=== PATIENT | female | born 1995 | race Caucasian/White ===

== ENCOUNTER 2018-09-27 17:22 | Emergency (ER) | payer OTHER ==
[~2018-09-27] VITALS: Ht 177.8 cm; Wt 99.8 kg
== END 2018-09-27 20:35 | disposition home or self-care (01) ==
LOC: ER 17:22
DX: M54.89 Other dorsalgia (principal)

== ENCOUNTER → 2019-10-10 | Emergency (ER) | payer OTHER ==
[~2019-10-10] VITALS: Ht 177.8 cm; Wt 104.3 kg
== END | disposition left against medical advice (07) ==
LOC: ER 01:11
DX: Z53.20 Procedure and treatment not carried out because of patient's decision for unspecified reasons (principal)